=== PATIENT | female | born 2000 | race African-American/Black ===

== ENCOUNTER → 2022-07-26 | Day surgery (SDC) | payer OTHER | END | disposition home or self-care (01) | LOC: JRADUS-SUR 13:16 | PROVIDERS: ATTEND Physician Assistant | PROC: 0H9U3ZX Drainage of Left Breast, Percutaneous Approach, Diagnostic (ICD-10-PCS; principal; 2022-07-26) | DX: N60.32 Fibrosclerosis of left breast (principal) | CPT/HCPCS: 19083; 87899; 88305-TC; 88342-TC; A4648 ==

== ENCOUNTER 2022-11-01 07:45 | Emergency (ER) | payer OTHER ==
[2022-11-01 08:15] VITALS: BP 107/71; PULSE 73; RESP 20; TEMP 97.9; BMI 23.4
[2022-11-01] MEDS ORDERED: IBUPROFEN 600 MG TABLET (FP) PO ONE ×2 (09:17→09:19)
== END 2022-11-01 09:32 | disposition home or self-care (01) ==
LOC: JERFT 07:45
PROC: 0H9U0ZZ Drainage of Left Breast, Open Approach (ICD-10-PCS; principal; 2022-11-01)
DX: N61.1 Abscess of the breast and nipple (principal)
CPT/HCPCS: 87070; 87076; 87205; 99283-25

== ENCOUNTER 2023-07-11 18:47 | Emergency (ER) | payer OTHER ==
[2023-07-11 19:02] VITALS: BP 101/63; PULSE 87; RESP 16; TEMP 98.9; BMI 22.4
[2023-07-11] MEDS ORDERED: CLINDAMYCIN HCL 300 MG CAPSULE PO ONE (21:25)
[2023-07-11] MEDS ORDERED: CLINDAMYCIN HCL 150 MG CAPSULE (FP) ONE (21:28)
== END 2023-07-11 22:13 | disposition home or self-care (01) ==
LOC: JERFT 18:47
DX: N61.1 Abscess of the breast and nipple (principal); N64.4 Mastodynia; N63.0 Unspecified lump in unspecified breast
CPT/HCPCS: 76642-TC-RT; 99284-25